=== PATIENT | female | born 1985 | race Caucasian/White ===

== ENCOUNTER → 2020-07-17 15:58 | Outpatient (BNVA) | payer OTHER, SELFPAY | PROVIDERS: Family Provider Nurse Practitioner Family; PCP Nurse Practitioner Family; Visit Provider Obstetrics & Gynecology | DX: R87.611 Atypical squamous cells cannot exclude high grade squamous intraepithelial lesion on cytologic smear of cervix (ASC-H) (principal) | CPT/HCPCS: 81025; 88305 ==

== ENCOUNTER → 2020-07-24 14:59 | Outpatient (BNVA) | payer OTHER, SELFPAY | PROVIDERS: Family Provider Nurse Practitioner Family; PCP Nurse Practitioner Family; Visit Provider Obstetrics & Gynecology | DX: N87.1 Moderate cervical dysplasia (principal) | CPT/HCPCS: 81025; 88307 ==

== ENCOUNTER 2023-06-17 14:36 | Outpatient (CLI) | payer OTHER, SELFPAY ==
--- NOTE | 2023-06-17 14:44 | MM_ITS ---
WS: [id number] BILATERAL 3D TOMOSYNTHESIS DIGITAL DIAGNOSTIC MAMMOGRAPHY WITH CAD CLINICAL INFORMATION: R BREAST LUMP HISTORY: Palpable lump RIGHT breast COMPARISON: None. TECHNIQUE: Bilateral CC, MLO, and ML views. FINDINGS: The breasts are composed of heterogeneous fibroglandular density, which can limit the detection of sm all underlying mass lesions. No suspicious focal mass, asymmetry, calcifications, or architectural distortion. ULTRASOUND BREAST RIGHT TECHNIQUE: Ultrasound right breast focused area of concern. CLINICAL INFORMATION: R BREAST LUMP FINDINGS: Ultrasound RIGHT breast in the area of concern. In the area of palpable concern 6 to 7 o'clock positi on 5 cm from the nipple there is a small anechoic breast cyst measuring 7 x 8 x 5 mm which has a mary gn appearance. No other suspicious underlying parenchymal abnormalities in the area of concern. Recom mend annual screening mammography age 40. IMPRESSION: MM/[place] [id number] BI-RADS: 2-Benign FOLLOW UP: Age 39 Recommend annual screening mammography age 40.
== END 2023-06-17 14:37 | disposition home or self-care (01) ==
LOC: RAD 14:37
PROVIDERS: Family Provider Nurse Practitioner Family; PCP Nurse Practitioner Family; Visit Provider Advanced Practice Midwife
DX: N63.10 Unspecified lump in the right breast, unspecified quadrant (principal)
CPT/HCPCS: 76642; 77062; G0279